=== PATIENT | female | born 1970 | race Caucasian/White ===

== ENCOUNTER 2019-10-13 08:00 | Outpatient (CLI) | payer MEDICAID | END 2019-10-13 23:59 | disposition home or self-care (01) | LOC: LAB.R 08:00 | PROVIDERS: ATTEND Family Medicine | DX: R05 Cough (principal); Z20.828 Contact with and (suspected) exposure to other viral communicable diseases | CPT/HCPCS: 81599 ==

== ENCOUNTER 2020-09-11 08:00 | Outpatient (CLI) | payer MEDICAID ==
--- NOTE | 2020-09-11 12:18 | XRAY Report ---
PROCEDURE: Lumbar Spine Complete INDICATIONS: LUMBAR BACK PAIN TECHNIQUE: 5 views of the lumbar spine were acquired. COMPARISON: None. FINDINGS: Bones: 5 [id number] vertebrae are present. Mild degenerative disc changes noted throughout the thoracic spine. Mild L3-L4, L4-L5 and L5-S1 facet arthropathy. There is normal bony alignment. No ve rtebral body compression fractures. No suspicious bony lesions. Soft tissues: Overlying bowel gas pattern is normal. No suspicious soft tissue calcifications. IMPRESSION: 1. Multilevel degenerative disc disease. 2. Multilevel facet arthropathy. 3. Chronic fracture spine Reviewed by: Carlota Trujillo MD, PhD on 09/11/2020 12:17 PM PDT Approved by: Carlota Trujillo MD, PhD on 09/11/2020 12:17 PM PDT Station ID: [id number]
[2020-09-11 15:26] LABS: BASOPHILS % (AUTO) 0.5 %; EOSINOPHILS % (AUTO) 0.2 %; HGB - HEMOGLOBIN 8.7 g/dL (12.0-16.0); LYMPHOCYTES # (AUTO) 1.1 10^3/uL (1.5-3.5); LYMPHOCYTES % (AUTO) 14.1 %; MEAN CORPUSCULAR HEMOGLOBIN 20.2 pg (27.0-31.0); MEAN CORPUSCULAR HGB CONC 28.1 g/dL (32.0-36.0); MEAN CORPUSCULAR VOLUME 71.9 fL (81.0-99.0); MEAN PLATELET VOLUME 9.7 fL (7.9-10.8); MONOCYTES # (AUTO) 0.9 10^3/uL (0.0-1.0); MONOCYTES % (AUTO) 11.5 %; NEUTROPHILS # (AUTO) 5.9 10^3/uL (1.5-6.6); NEUTROPHILS % (AUTO) 73.5 %; PLT - PLATELET COUNT 289 10^3/uL (130-450); RED BLOOD COUNT 4.31 10^6/uL (4.20-5.40); RED CELL DISTRIBUTION WIDTH 19.5 % (12.0-15.0); WHITE BLOOD COUNT 8.1 x10^3/uL (4.8-10.8)
[2020-09-11 15:48] LABS: ALBUMIN 3.9 g/dL (3.2-5.5); ALBUMIN/GLOBULIN RATIO 1.5 (1.0-2.2); BILIRUBIN,TOTAL 0.9 mg/dL (0.2-1.0); CALCIUM 8.9 mg/dL (8.5-10.3); CREATININE 0.5 mg/dL (0.4-1.0); POTASSIUM 3.9 mmol/L (3.5-5.0); TOTAL PROTEIN 6.5 g/dL (6.7-8.2)
[2020-09-11 15:56] LABS: PLATELET ESTIMATE, MANUAL NORMAL (130-450,000) (NORMAL); PLATELET MORPHOLOGY NORMAL APPEARANCE (NORMAL)
[2020-09-11 15:57] LABS: WBC MORPHOLOGY (MULTIPLE) NORMAL APPEARANCE (NORMAL)
[2020-09-11 16:08] LABS: THYROID STIMULATING HORMONE 1.72 uIU/mL (0.34-5.60)
[2020-09-11 19:45] LABS: % IRON SATURATION 3 % (20-50); IRON 10 ug/dL (28-170); TOTAL IRON BINDING CAPACITY 389 ug/dL (250-450); TRANSFERRIN 278 mg/dL (192-382)
== END 2020-09-11 23:59 | disposition home or self-care (01) ==
LOC: DI.S 08:00
PROVIDERS: ATTEND Physician Assistant Medical
DX: M51.36 Other intervertebral disc degeneration, lumbar region (principal); M47.816 Spondylosis without myelopathy or radiculopathy, lumbar region; R39.15 Urgency of urination; D50.9 Iron deficiency anemia, unspecified; R35.0 Frequency of micturition; M47.817 Spondylosis without myelopathy or radiculopathy, lumbosacral region
CPT/HCPCS: 36415; 80053; 82728; 83540; 84443; 84466; 85025; 87086

== ENCOUNTER 2020-09-11 09:08 | Outpatient (CLI) | payer MEDICAID | END 2020-09-11 09:09 | disposition EMS.NT | LOC: EMS 09:08 | DX: M54.9 Dorsalgia, unspecified (principal); G89.29 Other chronic pain ==

== ENCOUNTER 2021-02-16 15:02 | Emergency (ER) | payer MEDICAID ==
--- NOTE | 2021-02-16 15:42 | ED Physician Documentation ---
History of Present Illness - Stated complaint Stated Complaint: TROUBLE WALKING AND BLADDER CONTROL - Chief complaint Chief Complaint: Neuro - History obtained from History obtained from: Patient - Additonal information Additional information: 3 weeks BLE weakness increasing. Now unable to walk as of today. Was in PT for same and getting naturopathic injections. Has baseline urinary incontinence and it is worse now and has decreased saddle sensation. Review of Systems Ten Systems: 10 systems reviewed and negative Constitutional: reports: Reviewed and negative Ears: reports: Reviewed and negative Nose: reports: Reviewed and negative Throat: reports: Reviewed and negative PD PAST MEDICAL HISTORY - Present Medications Home Medications: Ambulatory Orders Medication Instructions Recorded Confirmed No Known Home Medications 02/16/21 02/16/21 - Allergies Allergies/Adverse Reactions: Allergies Allergy/AdvReac Type Severity Reaction Status Date / Time No Known Drug Allergies Allergy Verified 02/16/21 15:11 PD ED PE NORMAL - Vitals Vital signs reviewed: Yes - General General: Alert and oriented X 3, No acute distress - HEENT HEENT: PERRL, EOMI - Neck Neck: Supple, no meningeal sign, No bony TTP - Cardiac Cardiac: RRR, No murmur - Respiratory Respiratory: No respiratory distress, Clear bilaterally - Abdomen Abdomen: Normal bowel sounds, Soft, Non tender - Rectal Rectal: Other (She has perirectal sensation, but no tightness of the rectal sphincter.) - Back Back: No CVA TTP, No spinal TTP - Derm Derm: Normal color, Warm and dry - Extremities Extremities: Other (Decreased propriocention BLE L>R. Quite weak R hip flexion. 4/5 otherwise strength throughout BLE. 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 We do not have MRI available today and [facility] was called for ED to ED transfer for urgent MRI. Accepted by Dr. Angulo to [facility] at 5:06 PM. Cobras are completed and she is stable for transport. Departure - Departure Disposition: 02 Transfer Acute Care Hosp Clinical Impression: Cauda equina syndrome Condition: Serious
[2021-02-16] MEDS ORDERED: CHERRY SYRUP 10 ML UDC PO ONE (16:29)
[2021-02-16] MEDS ORDERED: DEXAMETHASONE 10 MG/ML VIAL PO STA (16:29)
[2021-02-16 18:23] VITALS: BP 205/117
== END 2021-02-16 18:24 | disposition short-term general hospital (02) ==
LOC: ED 15:02
DX: G83.4 Cauda equina syndrome (principal); Q77.4 Achondroplasia
CPT/HCPCS: 51798; 99284; 99285; A9270

== ENCOUNTER 2021-07-10 10:43 | Outpatient (CLI) | payer MEDICAID ==
--- NOTE | 2021-07-10 12:43 | XRAY Report ---
PROCEDURE: Spine Scoliosis Study 2-3V INDICATIONS: SPINE XRAY TECHNIQUE: Frontal and lateral standing views of the spine acquired. COMPARISON: None. FINDINGS: There is extensive spinal fusion visualized from the upper thoracic spine (T4) through the sacrum. No evidence for hardware failure or loosening. There also appears to be long segment laminectomies of t he lower thoracic spine and the lumbar spine. Paravertebral bone graft material is noted in the lower thoracic spine and lumbar spine. No acute compression fractures of the imaged spine. There appears to be no significant scoliotic curvature on the frontal views. AP alignment appears wit hin normal limits. There is however, straightening of normal cervical lordosis with severe multilevel cervical spondylitic changes most pronounced from C4-5 through the cervicothoracic junction. Degenerative changes of the bilateral hips. No suspicious osseous lesions. Visualized portions of the lungs appear clear. Nonobstructive bowel gas pattern. No suspicious soft t issue calcifications. IMPRESSION: Status post extensive spinal fusion from the upper thoracic spine through the sacrum without evidence for hardware failure or loosening. Postsurgical alignment appears anatomic. Straightening of cervical lordosis with severe multilevel cervical spondylitic changes most pronounce d from C4-5 through the cervicothoracic junction. Reviewed by: John Sarah MD on 07/10/2021 12:42 PM PST Approved by: John Sarah MD on 07/10/2021 12:42 PM PST Station ID: [id number]
== END 2021-07-10 10:44 | disposition home or self-care (01) ==
LOC: DI.S 10:43
PROVIDERS: ATTEND Orthopaedic Surgery
DX: S24.103A Unspecified injury at T7-T10 level of thoracic spinal cord, initial encounter (principal); Z98.1 Arthrodesis status; M48.04 Spinal stenosis, thoracic region; G95.89 Other specified diseases of spinal cord; M47.16 Other spondylosis with myelopathy, lumbar region; R29.898 Other symptoms and signs involving the musculoskeletal system; M47.12 Other spondylosis with myelopathy, cervical region; M47.14 Other spondylosis with myelopathy, thoracic region; M21.371 Foot drop, right foot; M21.372 Foot drop, left foot

== ENCOUNTER 2023-04-14 17:35 | Outpatient (CLI) | payer MEDICAID ==
--- NOTE | 2023-04-14 18:01 | XRAY Report ---
PROCEDURE: Shoulder 3 View LT INDICATIONS: CONTUSION OF LEFT SHOULDER TECHNIQUE: 3 views of the shoulder were acquired. COMPARISON: None. FINDINGS: Bones: Likely old surgical neck of left proximal humerus extending to the base of greater tuberosity . Severe acromioclavicular joint and glenohumeral joint osteoarthritic changes are seen. Deformity of left proximal to mid humeral shaft is seen. There is also acute fracture involving No suspicious bon y lesions. Visualized ribs appear intact. Post fixation changes are noted in visualized thoracic spi ne. Soft tissues: No suspicious soft tissue calcifications. The visualized lungs are within normal limi ts. IMPRESSION: Acute nondisplaced fracture involving surgical neck/proximal shaft of left humerus. 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 Moderate left shoulder joint osteoar thritis. Reviewed by: Jordy Landaverde MD on 04/14/2023 5:59 PM PST Approved by: Jordy Landaverde MD on 04/14/2023 5:59 PM PST Station ID: [id number]
== END 2023-04-14 23:59 | disposition home or self-care (01) ==
LOC: DI.S 17:35
PROVIDERS: ATTEND Physician Assistant Medical
DX: S42.215A Unspecified nondisplaced fracture of surgical neck of left humerus, initial encounter for closed fracture (principal); M19.012 Primary osteoarthritis, left shoulder

== ENCOUNTER 2023-04-17 09:32 | Outpatient (CLI) | payer MEDICAID | END 2023-04-17 09:33 | disposition critical access hospital (66) | LOC: EMS 09:32 | DX: S01.01XA Laceration without foreign body of scalp, initial encounter (principal); S01.111A Laceration without foreign body of right eyelid and periocular area, initial encounter; W01.0XXA Fall on same level from slipping, tripping and stumbling without subsequent striking against object, initial encounter; Y93.01 Activity, walking, marching and hiking; Y92.531 Health care provider office as the place of occurrence of the external cause | CPT/HCPCS: A0425; A0429; A0999 ==

== ENCOUNTER 2023-04-17 10:22 | Emergency (ER) | payer MEDICAID ==
[2023-04-17] MEDS ORDERED: LIDOCAINE-EPINEPH-TETRACAINE 3 ML SYRINGE TOP STA (10:52)
[2023-04-17] MEDS ORDERED: ACETAMINOPHEN 325 MG TABLET PO STA (10:52)
[2023-04-17] MEDS ORDERED: NAPROXEN 250 MG TABLET PO STA (10:53)
--- NOTE | 2023-04-17 10:54 | ED Physician Documentation ---
PD HPI HEAD INJURY - Stated complaint Stated Complaint: FALLS - Chief complaint Chief Complaint: Trauma Hd/Nk - History obtained from History obtained from: Patient, EMS - History of Present Illness Mechanism of head injury: Fell (she has had some balance problems and falls recently and has been using walking sticks for asssitance. Fell couple weeks ago and broke humerus, so wearing sling nad not able to use 2 walking poles. Has felt off balance more and fell yesterday with lac scalp, and again this AM at [facility], lac face.) Where head injury occurred: Home Timing - onset: How many weeks ago (worsened balance few weeks and recent falls in particular with humerus fracture and now scalp/face fractures.) Location of injury: Right, Front Quality of pain: Throbbing, Aching Associated symptoms: No: LOC, AMS, Nausea / vomiting Contributing factors: No: Anticoagulated Review of Systems Constitutional: denies: Fever, Chills Nose: denies: Rhinorrhea / runny nose, Congestion Throat: denies: Sore throat Cardiac: denies: Chest pain / pressure Respiratory: reports: Cough PD PAST MEDICAL HISTORY - Past Medical History Past Medical History: Yes Respiratory: Sleep apnea Neuro: None Endocrine/Autoimmune: None POLICE DISPATCHER: Fibroids Psych: Depression, Anxiety Musculoskeletal: Other Other Past Medical History: Congenital stenosis with myelopathy of cervical, thoracic, and lumbar spine, achondroplasia, myelomalacia - Past Surgical History Past Surgical History: Yes /POLICE DISPATCHER: Other HEENT: Tonsil/Adenoidectomy - Present Medications Home Medications: Ambulatory Orders Medication Instructions Recorded Confirmed No Known Home Medications 02/16/21 04/17/23 - Allergies Allergies/Adverse Reactions: Allergies Allergy/AdvReac Type Severity Reaction Status Date / Time Sulfa (Sulfonamide Allergy Hives Verified 04/17/23 10:44 Antibiotics) - Social History Does the pt smoke?: No Smoking Status: Never smoker Does the pt drink ETOH?: No Does the pt have substance abuse?: No - Immunizations Immunizations are current?: Yes PD ED PE NORMAL - Vitals Vital signs reviewed: Yes - General General: Well developed/nourished (short stature) - HEENT HEENT: PERRL, EOMI, Other (right forehead with lac to fatty tissue layer. There is also scalp lac frontal area that has dried blood and appears more likely yesterday.) - Neck Neck: Supple, no meningeal sign, No bony TTP - Extremities Extremities: Other (left arm in sling. Right arm and wrists are not tender, with good fashion consultant sales and pull on rihgt, fashion consultant sales on left. ) Results - Vitals Vitals: Oxygen O2 Source Room air - Labs Labs: Laboratory Tests 04/17/23 04/17/23 11:05 11:05 WBC 7.0 RBC 4.69 Hgb 13.6 Hct 41.2 MCV 87.8 MCH 29.0 MCHC 33.0 RDW 13.6 Plt Count 246 MPV 9.5 Neut # (Auto) 5.3 Lymph # (Auto) 1.0 L Lewis # (Auto) 0.6 Eos # (Auto) 0.1 Baso # (Auto) 0.0 Absolute Nucleated RBC 0.00 Nucleated RBC % 0.0 Sodium 140 Potassium 3.7 Chloride 107 Carbon Dioxide 25 Anion Gap 8.0 BUN 13 Creatinine 0.3 L Estimated GFR (MDRD) 233 Glucose 95 Calcium 9.6 Magnesium 1.8 Total Bilirubin 0.6 AST 14 ALT 8 L Alkaline Phosphatase 112 Total Protein 6.4 Albumin 3.9 Globulin 2.5 Albumin/Globulin Ratio 1.6 Lipase 31 Vitamin B12 327 - Rads (name of study) head CT Relevant Findings:: Prelim report reviewed (no acute intracranial process. ), EMP independent interpretation of test Procedures - Laceration (location) frontal scalp Length in cm: 3 Wound type: Linear, Into subcut fat, Clean Neurovascular status: Sensory intact Anesthesia: Lidocaine 1% with epi Wound preparation: Irrigated copiously NS Skin layer closure: Kat, Interrupted Other: Patient tolerated well, No complications right forehead Length in cm: 3 Wound type: Curved, Irregular, Clean Neurovascular status: Sensory intact, Motor intact Anesthesia: Lidocaine 1% with epi Wound preparation: Irrigated copiously NS, Wound explored, To the base Deep layer closure: Vicryl, size #-0 - enter number (5), # sutures - enter number (5) Skin layer closure: Nylon, Running, Size #-0 - enter number (5) Other: Patient tolerated well, No complications, Neurovascular intact PD Medical Decision Making - ED course Complexity details: reviewed results (got CT head due to falls and balance problems. No ICH nor subdural/etc seen. Labs with normal lytes, in particular sodium, but chem panel all good. CBC without anemia. ), considered differential (has had worse balance with falling. Now worse with left arm fractures, as she feels the sling and lack of use of arm has affected balance even more. Fal with scalp and forehead lacs now. She does not feel LOC/syncope/preceding symptoms to the falls. Seems more mechanical. ), d/w patient Departure - Departure Disposition: 01 Home, Self Care Clinical Impression: Balance problem, Falls, Facial laceration, Scalp laceration Condition: Stable Record reviewed to determine appropriate education?: Yes Instructions: ED Laceration All Follow-Up: Kat Aguilar ARNP [Primary Care Provider] - [facility] [Provider Group] Comments: It is okay to wash and shower. Clean off the wound twice a day with soap and water, or peroxide and water. Apply some antibiotic ointment to it to keep it moist. Also to watch for signs of infection such as purulence, redness or increasing pain. Return to your primary care or the ER at the specified time for suture removal. Sutures and kat can both come out in about 7 or 8 days. Tylenol or ibuprofen if needed for pains. Your CT scan did not show any signs of bleeding swelling or blood collections within the cranium. Mobilizes well as you can given your arm injury. [place] [facility] if that is more convenient. I provided the Ortho clinic phone number. Forms: PCP List Discharge Date/Time: 04/17/23 15:21
[2023-04-17 11:20] LABS: BASOPHILS % (AUTO) 0.6 %; EOSINOPHILS # (AUTO) 0.1 10^3/uL (0.0-0.7); EOSINOPHILS % (AUTO) 0.7 %; HCT - HEMATOCRIT 41.2 % (37.0-47.0); HGB - HEMOGLOBIN 13.6 g/dL (12.0-16.0); LYMPHOCYTES % (AUTO) 14.5 %; MEAN CORPUSCULAR VOLUME 87.8 fL (81.0-99.0); MEAN PLATELET VOLUME 9.5 fL (7.9-10.8); MONOCYTES # (AUTO) 0.6 10^3/uL (0.0-1.0); MONOCYTES % (AUTO) 8.2 %; NEUTROPHILS # (AUTO) 5.3 10^3/uL (1.5-6.6); NEUTROPHILS % (AUTO) 75.6 %; PLT - PLATELET COUNT 246 10^3/uL (130-450); RED BLOOD COUNT 4.69 10^6/uL (4.20-5.40); RED CELL DISTRIBUTION WIDTH 13.6 % (12.0-15.0)
[2023-04-17 11:33] LABS: ALBUMIN 3.9 g/dL (3.2-5.5); ALBUMIN/GLOBULIN RATIO 1.6 (1.0-2.2); BILIRUBIN,TOTAL 0.6 mg/dL (0.2-1.0); CALCIUM 9.6 mg/dL (8.5-10.3); CREATININE 0.3 mg/dL (0.6-1.3); MAGNESIUM 1.8 mg/dL (1.7-2.3); POTASSIUM 3.7 mmol/L (3.5-4.5); TOTAL PROTEIN 6.4 g/dL (6.4-8.9)
--- NOTE | 2023-04-17 12:29 | CT Report ---
PROCEDURE: HEAD WO INDICATIONS: falls x 2 with struck head, hedache/off balance TECHNIQUE: Noncontrast 4.5 mm thick angled axial sections acquired from the foramen magnum to the vertex. For r adiation dose reduction, the following was used: automated exposure control, adjustment of mA and/or kV according to patient size. COMPARISON: None. FINDINGS: Image quality: Excellent. CSF spaces: Basal cisterns are patent. No extra-axial fluid collections. Ventricles are normal in size and shape. Brain: No midline shift. No intracranial masses or hemorrhage. Age-related volume loss is seen. Gr ay-white matter interface is normal. Skull and face: Right frontal scalp hematoma and swelling is noted. Calvarium and visualized facial b ones are intact, without suspicious lesions. Sinuses: Visualized sinuses and mastoids are clear. IMPRESSION: 1. No acute intracranial pathology. 2. Right frontal scalp hematoma and swelling. No acute skull fracture. 3. Age-related volume loss. Reviewed by: Jordy Landaverde MD on 04/17/2023 12:28 PM PST Approved by: Jordy Landaverde MD on 04/17/2023 12:28 PM PST Station ID: [id number]
[2023-04-17 15:26] VITALS: BP 117/68; O2SAT 100
== END 2023-04-17 15:21 | disposition home or self-care (01) ==
LOC: EDUNIT# → ED 10:22
DX: S01.01XA Laceration without foreign body of scalp, initial encounter (principal); S01.81XA Laceration without foreign body of other part of head, initial encounter; W19.XXXA Unspecified fall, initial encounter; Z91.81 History of falling; R26.9 Unspecified abnormalities of gait and mobility
CPT/HCPCS: 12002; 12013; 36415; 70450; 80053; 82607; 83690; 83735; 84425; 85025; 99283; 99284; A9270